=== PATIENT | male | born 1970 | race African-American/Black ===

== ENCOUNTER 2018-08-19 07:59 | Inpatient (IN) ==
--- NOTE | 2018-08-19 08:51 | Diag Imaging Result Doc PS360 ---
EXAM: CT HEAD W/O CONTRAST HISTORY: reynolds, numbness TECHNIQUE: CT head without contrast COMPARISON: None. FINDINGS: No parenchymal hemorrhage. No epidural or subdural hematoma. No subarachnoid hemorrhage. No mass identified on this noncontrasted exam. No hydrocephalus. No sinus opacification. IMPRESSION: No hemorrhage. Negative brain CT without contrast. This exam was performed using automated exposure control, adjustment of mA or kV according to patient size, and/or use of iterative reconstruction technique. Electronically signed by Jet Valenzuela 08/19/2018 8:49 AM
--- NOTE | 2018-08-19 09:38 | PROVIDER DOCUMENTATION ---
HPI-Headache - General Chief Complaint: Headache Stated Complaint: SANDS,RT ARM NUMB,BLURRED VISION Time Seen by Provider: 08/19/18 08:15 Source: patient Allergies/Adverse Reactions: Patient Allergies Allergy/AdvReac Type Severity Reaction Status Date / Time shellfish derived Allergy ANAPHYLAXIS Verified 08/19/18 09:57 - History of Present Illness-Headache Nature of Presenting Problem: Patient is a 48yo M who presents w/ c/o moderate-severe headache, R eye blurry vision, and R arm numbness that began at 0400 this morning. Patient reports he does not have a hx of headaches. Reports he took some OTC Aleve and went to work and was sent to the ER for his symptoms. Hx of HTN. Denies any neck pain. Reports that since being in the ED, this headache has improved and his arm is not numb anymore. Strength equal bilaterally. PERRLA. A&Ox3. Headache Location: reports: global Quality of Pain: reports: throbbing Severity: reports: moderate Onset/Duration: reports: 4-6 hours ago Timing: reports: improving Headache Context: reports: nothing Headache History: reports: other (No hx of headaches) Any recent trauma/injury?: reports: none Headache severity at the maximum: severe Preceding Symptoms: reports: visual disturbances (R eye blurry vision) Headache Exacerbated by:: reports: nothing Modifying Factors: improves with: analgesics (OTC Aleve) Associated Symptoms: reports: headache, vision changes. denies: dizziness, chest pain, neck/back pain, fever/chills, loss of consciousness, muscle spasms, nausea, numbness in legs/feet, paresthesia, diaphoretic, tingling in legs/feet, trouble walking, vomiting, weakness Similar Symptoms Previously?: No Recently seen or treated by another doctor?: No Review of Systems - Adult - REVIEW OF SYSTEMS - ADULT Constitutional: denies: chills, fever Eyes: reports: blurred vision (R eye) Ears, Nose, Mouth & Throat: reports: no symptoms reported Cardiovascular: denies: chest pain, palpitations, syncope Respiratory: denies: cough, shortness of breath Gastrointestinal: denies: nausea, vomiting Genitourinary: reports: no symptoms reported Musculoskeletal: reports: no symptoms reported, other Integumentary: reports: no symptoms reported Neurological: reports: see HPI, headache/migraines, numbness (R eye). denies: dizziness/vertigo, loss of balance, slurred speech, syncope, tremors Psychiatric: reports: no symptoms reported Endocrine: reports: no symptoms reported All Other Systems: Reviewed and Negative Past History - Adult - PAST MEDICAL HISTORY-ADULT Review of Records: reports: Nursing Assessment Review, Medications Reviewed - IMMUNIZATION STATUS Childhood Immunizations: See Nurse Assessment Flu Vaccine: See Nurse Assessment Physical Exam- Neurological - Physical Exam-Neuro Initial Vital Signs Reviewed: Yes General Appearance: appears well, alert, no apparent distress Eye Exam: bilateral eye: normal inspection, PERRL HENMT: normocephalic/atraumatic, moist mucous membranes Head Injury: no evidence of injury Neck: non-tender, full range of motion, supple, normal inspection Respiratory: chest non-tender, lungs clear, normal breath sounds, no pleuratic chest pain, no respiratory distress, no accessory muscle use Cardiovascular: regular rate, rhythm, no gallop, no murmur Lymphatic: no adenopathy Peripheral Pulses: radial (R): 2+, radial (L): 2+ Extremity: normal range of motion, 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, 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: normal hearing, normal speech, PERRL Coordination/Gait: normal finger to nose Motor/Sensory: no motor deficit, no sensory deficit, no pronator drift Neurologic: grossly normal Integumentary: normal color, normal turgor, warm/dry Psych/Mental Status: normal mood/affect, normal thought content, normal thought process, oriented x 3 - Glascow Coma Scale Best Eye Response: (4) open spontaneously Best Verbal Response: (5) oriented Best Motor Response: (6) obeys commands Total Glascow Score: 15 Progress - PLAN OF CARE/RESULTS Progress/Plan/Lab Results: Vital Signs - 8 hr 08/19/18 08:02 Temperature 98.2 F Pulse Rate 82 Respiratory Rate 16 Blood Pressure 169/107 O2 Sat by Pulse Oximetry 99 Laboratory Results - last 24 hr 08/19/18 08/19/18 08/19/18 10:06 10:06 10:22 WBC 4.51 L RBC 4.97 Hgb 14.9 Hct 44.5 MCV 89.5 MCH 30.0 MCHC 33.5 RDW Std Deviation 13.2 Plt Count 201 MPV 11.3 H Immature Gran % (Auto) 0.0 Neut % (Auto) 52.1 Lymph % (Auto) 33.9 Boyle % (Auto) 10.0 H Eos % (Auto) 3.8 Baso % (Auto) 0.2 Immature Gran # (Auto) 0.00 Neut # (Auto) 2.35 Lymph # (Auto) 1.53 Boyle # (Auto) 0.45 Eos # (Auto) 0.17 Baso # (Auto) 0.01 Sodium 139 Potassium 4.0 Chloride 101 Carbon Dioxide 30 Anion Gap 8 BUN 13 Creatinine 1.2 Estimated GFR/1.73 m2 > 60 BUN/Creatinine Ratio 11 Glucose 99 Calculated Osmolality 278 Calcium 9.6 Total Bilirubin 0.52 AST 25 ALT 27 Alkaline Phosphatase 83 Total Protein 7.0 Albumin 4.2 Globulin 2.8 Albumin/Globulin Ratio 1.5 Urine Source CLEAN CATCH Urine Color YELLOW Urine Turbidity CLEAR Urine pH 7.0 Ur Specific [place] 1.007 Urine Protein NEGATIVE Ur Glucose (Stick) NEGATIVE Ur Ketones (Stick) NEGATIVE Urine Blood NEGATIVE Urine Nitrite NEGATIVE Urine Bilirubin NEGATIVE Urobilinogen Dipstick NORMAL Urine Leukocytes NEGATIVE Urine WBC (Auto) <10 Urine RBC (Auto) <10 U Epithel Cells (Auto) <10 Urine Bacteria (Auto) NEGATIVE Orders Category Date Time Status CT HEAD W/O CONTRAST [CT] Stat Exams 08/19/18 08:15 Completed CBC WITH ELECTRONIC DIFF [HEME] Stat Lab 08/19/18 10:06 Completed COMPREHENSIVE METABOLIC PANEL [CHEM] Stat Lab 08/19/18 10:06 Completed URINALYSIS W/POSS RFLX CULT [URINALYSIS] Stat Lab 08/19/18 10:22 Completed EKG [EKG] Stat Ther 08/19/18 09:32 Draft Imaging results and plan of care discussed with patient who verbalizes understanding. Plan of care discussed and formulated in conjunction with MD Parish. Result Diagrams: 08/19/18 10:06 08/19/18 10:06 - CONSULTS/PCP/HOSPITALIST Notification #1 *Consult/PCP/Hospitalist*: NIELS Jones Hospitalist Time Discussed: 11:05 Reason/Comments: Admit for TIA workup - Dr. Lobato Consult Disposition: Admit Departure - Departure Date of Disposition Decision: 08/19/18 Time of Disposition Decision: 11:05 DIAGNOSIS: Right arm numbness, Blurry vision, right eye Headache Qualifiers: Headache type: unspecified Headache chronicity pattern: acute headache Intractability: intractable Qualified Code(s): R51 - Headache Disposition: ADMITTED INPATIENT 09 Certified Medical Emergency: Emergent Condition: Stable Referrals and Follow-Ups: None,PCP [Primary Care Provider] - - Critical Care Note This patient required my direct & personal management of CC.: No Attestation - Physician/ PERCY Attestation Patient care was provided by Advanced Practice Provider:: Yes Advanced Practice Provider:: Mary Funez Advanced Practice Provider documentation review:: The Mid-level provider documentation, treatment plan and medical decision making was reviewed by the physician who agrees with all treatment and medical decision making by the MLP. The physician spent face to face time with patient:: No Advanced Practice Provider documentation review:: Supervising physician onsite and consulted in the evaluation and care of this patient. The physician did not have a face to face encounter with the patient.
[2018-08-19 10:23] LABS: BASO# 0.01 X1000 (0.0-0.2); BASO% 0.2 % (0.0-0.8); EOS# 0.17 X1000 (0.0-0.7); EOS% 3.8 % (0.0-10.0); HEMATOCRIT 44.5 % (42.0-52.0); HEMOGLOBIN 14.9 g/dL (14.0-18.0); LYMPH# 1.53 X1000 (1.2-3.4); LYMPH% 33.9 % (20.5-51.1); MCHC 33.5 g/dL (33-37); MCV 89.5 FL (81-99); MONO# 0.45 X1000 (0.11-0.59); MPV 11.3 FL (7.4-10.4); NEUT# 2.35 X1000 (1.4-6.5); NEUT% 52.1 % (42.2-75.2); PLT 201 X1000 (130-400); RBC 4.97 XMIL (4.7-6.1); RDW 13.2 % (11.5-14.5); WBC 4.51 X1000 (4.8-10.8)
--- NOTE | 2018-08-19 10:23 | EKG Report ---
Test Performed on : 08/19/2018 10:17:54 AM Test Reason : HTN Blood Pressure : / mmHG Vent. Rate : 063 BPM Atrial Rate : 063 BPM P-R Int : 136 ms QRS Dur : 070 ms QT Int : 356 ms P-R-T Axes : 060 031 047 degrees QTc Int : 364 ms Normal sinus rhythm. Nonspecific T wave abnormality Abnormal ECG No previous ECGs available Unconfirmed Result
[2018-08-19 10:33] LABS: AGAP 8; ALB/GLOB RATIO 1.5; ALBUMIN 4.2 g/dL (3.5-5.0); ALKALINE PHOSPHATASE 83 U/L (32-122); BUN 13 mg/dL (8-22); CALCIUM 9.6 mg/dL (8.8-10.2); CHLORIDE 101 mmol/L (98-107); COSMO 278; CREATININE 1.2 mg/dL (0.7-1.2); ESTIMATED GFR > 60; GLUCOSE 99 mg/dL (70-104); GOT 25 U/L (10-34); GPT 27 U/L (10-44); SODIUM 139 mmol/L (136-145); TCO2 30 mmol/L (25-35); TOTAL BILIRUBIN 0.52 mg/dL (0.20-1.00)
[2018-08-19 10:33] LABS: URINE SOURCE CLEAN CATCH
[2018-08-19 10:36] LABS: BILIRUBIN URINE NEGATIVE (NEGATIVE); BLOOD URINE NEGATIVE (NEGATIVE); COLOR YELLOW; GLUCOSE URINE NEGATIVE (NEGATIVE); KETONE URINE NEGATIVE (NEGATIVE); LEUKOCYTES URINE NEGATIVE (NEGATIVE); NITRITE URINE NEGATIVE (NEGATIVE); PROTEIN URINE NEGATIVE (NEGATIVE); SP GRAVITY URINE 1.007; TURBIDITY URINE CLEAR (CLEAR); UROBILINOGEN URINE NORMAL (NORMAL)
[2018-08-19 10:37] LABS: UR EPITHELIAL CELLS <10 /HPF (<10); URINE BACTERIA NEGATIVE /HPF; URINE RBC <10 /HPF (<10); URINE WBC <10 /HPF (<10)
--- NOTE | 2018-08-19 11:17 | ED EKG INTERP ---
EKG Interpretation - EKG Time of EKG reading by physician:: 10:17 EKG Read and Signed by:: Maurice Parish EKG Interpretation (*Must complete 3 of following elements*): Abnormal Rate: 63 Rhythm: NSR [place]: normal QRS: normal NC Interval: normal ST Wave: non-specific ST changes Prior EKG Comparison: no prior EKG Attestation - Physician/ PERCY Attestation Patient care was provided by Advanced Practice Provider:: Yes Advanced Practice Provider:: Mary Funez Advanced Practice Provider documentation review:: The Mid-level provider documentation, treatment plan and medical decision making was reviewed by the physician who agrees with all treatment and medical decision making by the MLP. The physician spent face to face time with patient:: No Advanced Practice Provider documentation review:: Supervising physician onsite and consulted in the evaluation and care of this patient. The physician did not have a face to face encounter with the patient.
[2018-08-19] MEDS ORDERED: TYLENOL PO PRN (11:56)
[2018-08-19] MEDS ORDERED: ZOFRAN IV PRN (11:56)
[2018-08-19 12:17] LABS: INR 0.96; PROTIME 13.6 Seconds (11.0-16.0)
[2018-08-19 12:38] LABS: TSH 1.36 uIUmL (0.27-4.20)
--- NOTE | 2018-08-19 14:05 | HISTORY AND PHYSICAL ---
PRIMARY CARE PROVIDER: [place] [facility] [place]. CHIEF COMPLAINT: Severe headache, blurred vision, and right arm numbness. HISTORY OF PRESENT ILLNESS: Mr. Grey is a 48-year-old male with a past medical history of hypertension, who experienced severe headache along with blurred vision of his right eye and numbness and tingling of his right arm that occurred this morning around 5:15 in the morning. He states he went onto work and took 3 Aleve, and his symptoms still persisted. At that point, he came into the emergency room. His symptoms have now resided. He is not complaining of any of his initial symptoms that brought him into the emergency room anymore. Evaluation in the emergency room showed a head CT that was negative for hemorrhage. EKG with normal sinus rhythm with nonspecific T-wave abnormality. His labs are unremarkable except elevated cholesterol and triglycerides. His vital signs are stable. He will be admitted for further workup and evaluation regarding suspected TIA. PAST MEDICAL HISTORY: 1. Hypertension. 2. Chronic low back pain. PAST SURGICAL HISTORY: Appendectomy. SOCIAL HISTORY: He denies smoking, alcohol or drug use. He lives at home with his fiancee. 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 FAMILY HISTORY: Hypertension in his father. REVIEW OF SYSTEMS: Fourteen point review of systems complete and negative except for those mentioned in the HPI. His current symptoms initially were severe headache, right eye blurred vision and right arm numbness. Those symptoms have since resided. He denies any chest pain, shortness of breath, abdominal pain, nausea, vomiting, constipation, and diarrhea. HOME MEDICATIONS: Waiting to be reconciled. He does take a medication for blood pressure. He states he cannot remember the name of it. ALLERGIES: Shellfish. PHYSICAL EXAMINATION: VITAL SIGNS: Temperature 98.2 degrees, heart rate 82, respiratory rate 16, blood pressure 169/107, and O2 saturation 99% on room air. GENERAL: This is a 48-year-old male in no acute distress sitting up in bed, answering questions appropriately. His fiancee is at the bedside. NEUROLOGIC: He is alert and oriented without focal deficits. His strength was equal bilaterally. There was no facial asymmetry or drooping. Cranial nerves 2-12 were grossly intact. He could complete rapid alternating movement without difficulty and do [id number] without difficulty. HEENT: Head is atraumatic, normocephalic. Pupils are equal, round, reactive to light. Oral mucosa is moist. NECK: Trachea is midline. There is no JVD. CHEST: Lung sounds are clear bilaterally. Respirations are unlabored. CARDIOVASCULAR: Rate and rhythm are regular. S1 and S2 is noted. ABDOMEN: Soft and nontender. Bowel sounds are positive. EXTREMITIES: There is no edema. Capillary refill is brisk. Pedal pulses 2+. SKIN: Warm, dry, and intact. LABORATORY: WBC 4.5, hemoglobin 14.9, hematocrit 44.5, and platelets 201,000. PT 13.6, INR 0.96. Sodium 139, potassium 4.0, BUN 13, creatinine 1.2, and glucose 99. Liver enzymes normal. Triglycerides 189, cholesterol 210. TSH 1.3. B12 397. Urine negative. IMAGING: Head CT with no hemorrhage. Negative brain CT without contrast. EKG, normal sinus rhythm. Nonspecific T-wave abnormality. ASSESSMENT AND PLAN: 1. Suspected transient ischemic attack. We will go ahead and get MRI and MRA of the brain and carotid imaging and echocardiogram. We will do aspirin daily 325. We will start patient on a statin, and do neuro checks q.4 hours. 2. Hypertension. We will continue with his home medications once reconciled. 3. Deep venous thrombosis prophylaxis Lovenox. Dictated by NIELS Kern for Tip Mckeon MD cc: Tip Mckeon MD [place] in [facility]
[2018-08-19] MEDS: LOVENOX SUBQ SCH ×2 (18:28→18:37)
[2018-08-19] MEDS: ASPIRIN PO SCH ×2 (18:28→18:36)
[2018-08-20 07:30] LABS: BASO# 0.02 X1000 (0.0-0.2); BASO% 0.5 % (0.0-0.8); EOS# 0.11 X1000 (0.0-0.7); EOS% 2.9 % (0.0-10.0); HEMATOCRIT 42.8 % (42.0-52.0); HEMOGLOBIN 14.3 g/dL (14.0-18.0); LYMPH% 40.1 % (20.5-51.1); MCHC 33.4 g/dL (33-37); MCV 89.9 FL (81-99); MONO# 0.29 X1000 (0.11-0.59); MONO% 7.8 % (1.7-9.3); MPV 11.2 FL (7.4-10.4); NEUT# 1.82 X1000 (1.4-6.5); NEUT% 48.7 % (42.2-75.2); PLT 199 X1000 (130-400); RBC 4.76 XMIL (4.7-6.1); RDW 13.3 % (11.5-14.5); WBC 3.74 X1000 (4.8-10.8)
[2018-08-20 07:58] LABS: AGAP 12; ALB/GLOB RATIO 1.5; ALKALINE PHOSPHATASE 83 U/L (32-122); BUN 15 mg/dL (8-22); CALCIUM 8.8 mg/dL (8.8-10.2); CHLORIDE 101 mmol/L (98-107); COSMO 278; CREATININE 1.3 mg/dL (0.7-1.2); ESTIMATED GFR > 60; GLUCOSE 97 mg/dL (70-104); GOT 22 U/L (10-34); GPT 24 U/L (10-44); POTASSIUM 4.2 mmol/L (3.5-5.1); SODIUM 139 mmol/L (136-145); TCO2 26 mmol/L (25-35); TOTAL BILIRUBIN 0.42 mg/dL (0.20-1.00); TOTAL PROTEIN 6.6 g/dL (6.3-8.3)
[2018-08-20] MEDS: ASPIRIN PO SCH (08:01)
[2018-08-20] MEDS ORDERED: NORVASC PO SCH (09:00)
--- NOTE | 2018-08-20 09:43 | Diag Imaging Result Doc PS360 ---
MRI BRAIN W/WO CONTRAST - 08/20/2018 INDICATION: stroke COMPARISON: Head CT 08/19/2018 FINDINGS: There is no area of restricted diffusion. No intracranial mass or hemorrhage. There are a few, minimal foci of increased intensity in the subcortical white matter mainly in the left frontal lobe superiorly. No other areas of abnormal signal. There is no abnormal contrast enhancement. IMPRESSION: Minimal nonspecific subcortical white matter changes. No acute process. Electronically signed by Sergio Estrada 08/20/2018 9:40 AM
--- NOTE | 2018-08-20 09:48 | Diag Imaging Result Doc PS360 ---
MRA BRAIN W/O CONTRAST - 08/20/2018 INDICATION: stroke TECHNIQUE: Noncontrast [id number] technique was used COMPARISON: None FINDINGS: The intracranial vessels all appear normal. There is no stenosis or aneurysm. Anatomy is conventional. IMPRESSION: Negative exam. Electronically signed by Sergio Estrada 08/20/2018 9:46 AM
[2018-08-20 11:17] VITALS: BP 148/86
[2018-08-20] MEDS: LOVENOX SUBQ SCH (13:04)
--- NOTE | 2018-08-20 13:51 | ECHO REPORT ---
ORDER DATE: 08/19/2018 INTERPRETING PHYSICIAN: Dr. Paez CLINICAL INDICATIONS: A 48-year-old male with TIA. M-MODE MEASUREMENTS: Left ventricle end diastole: 4.6 cm. Left ventricle end systole: 2.9 cm. Posterior wall: 0.8 cm. Interventricular septum: 0.8 cm. Left atrium: Not measured. Aortic root: 2.6 cm. Inferior vena cava: 1.7 cm. SUMMARY OF 2-DIMENSIONAL IMAGIN. The study is technically difficult. The apical chambers are very limited. 2. The global left ventricular systolic function is normal, ejection fraction estimated at 60% to 65%. No wall motion abnormality is noted. 3. The right ventricle appears to be normal. 4. The aortic valve is normal. Color flow mapping unremarkable. 5. The mitral valve is normal. Color flow mapping indicated a mild degree regurgitation. 6. Pulse wave Doppler of mitral inflow is normal. 7. Tissue Doppler of septal and lateral mitral annulus averages 11 cm. 8. There is no diastolic dysfunction. 9. The pulmonic valve is normal. Color flow mapping unremarkable. 10.The tricuspid valve is normal. Color flow mapping unremarkable. 11.Pulmonary pressure estimated at 31 mmHg. 12.There is no pericardial effusion. No mass. No thrombus. Clinical correlation is recommended. cc: Gamaliel Paez MD
--- NOTE | 2018-08-20 18:35 | Carotid Study ---
DATE: 08/19/2018 PROCEDURE: Carotid duplex imaging. REFERRING PHYSICIAN: Dr. Lobato. INTERPRETING PHYSICIAN: Dr. Randal Galvez. TECH: [employer]. INDICATIONS: TIA, headache, right-sided weakness. OBSERVED DATA RIGHT LEFT Brachial Blood Pressure Carotid Pulse Bruits: Carotid/Sub DIAGRAM OF ULTRASOUND IMAGING R L RIGHT INT EXT INT EXT LEFT Byron (cm/s) Byron (cm/s) Subclavian 112/0 Subclavian 150/0 CCA Proximal 88/14 CCA Proximal 89/9 CCA Distal 60/14 CCA Distal 76/7 Bulb 52/8 Bulb 54/9 ICA Proximal 53/11 ICA Proximal 55/8 ICA Mid 53/16 ICA Mid 41/8 ICA Distal 54/19 ICA Distal 74/22 ECA 64/0 ECA 71/0 Vertebral 43/12 Vertebral 44/14 ICA/CCA Ratio 0.6 ICA/CCA Ratio 0.8 % Stenosis 0-39 % Stenosis 0-39 FINDINGS: There were no significant plaques in either carotid system. There was antegrade vertebral flow bilaterally. INTERPRETATION: Unremarkable carotid imaging study. cc: Randal Galvez MD
[2018-08-20] MEDS ORDERED: LIPITOR PO SCH (21:00)
--- NOTE | 2018-08-21 15:32 | DISCHARGE SUMMARY ---
ADMISSION DATE: 08/19/2018 DISCHARGE DATE: 08/20/2018 DISCHARGE DIAGNOSES: 1. Suspected transient ischemic attack. 2. Hypertension. 3. Dyslipidemia. 4. Obesity with a body mass index of 31.1. PROCEDURES PERFORMED: 1. Head CT scan dated 08/19/2018. Impression: No hemorrhage, negative brain CT without contrast. Electrocardiogram dated 08/19/2017. Results: Normal sinus rhythm, nonspecific T- wave abnormalities. 2. Echocardiogram dated 08/19/2018 ejection fraction estimated at 60 to 65 percent with no wall motion abnormality. Pulmonary pressure estimated at 31 mmHg. No pericardial effusion, mass or thrombus. 3. Brain MRI and MRA of the head. Impression: Minimal nonspecific subcortical white matter changes. No acute process. 4. MRA of the head, negative exam. 5. Carotid ultrasound dated 08/19/2018, bilateral stenosis around 0 to 39 percent, no issues. HOSPITAL COURSE: A 48-year-old male with a past medical history of hypertension, who presented to the emergency department and admitted on 08/19/2017. As per the patient, he presented with severe headache along with blurry vision of the right eye, numbness and tingling of the right arm the morning of admission around 5:15 in the morning. He took 3 Aleve later that day at work, and the symptoms persisted. At that point, he decided to come to the emergency department, but the symptoms now are resolved. CT scan of the head, MRI and MRA of the head, echocardiogram and carotic ultrasound within normal limits. He basically did not have any symptoms during this hospitalization, but he was found to have elevated triglyceride and cholesterol. He was placed on statins for that. Also, his blood pressure was in the 140s to 150s, and we added amlodipine to his treatment. Also, we started this patient on aspirin. Today, this patient is completely asymptomatic. I do not have any acute abnormality in the multiple lab work and images. He is ambulating by himself, tolerating p.o. with no issues. This is why we decided to discharge this patient with a strict followup by his primary care doctor in 1 week. He will be discharged with aspirin, statin, and blood pressure medication. PHYSICAL EXAMINATION: Vital Signs: Temperature 98.2 degrees, pulse 81, respiratory rate 18, blood pressure 148/86, and oxygen saturation 100% on room air. HEENT: Head normocephalic. No trauma. PERRLA. Neck: Supple. No JVD. No masses. Central trachea. Chest: Clear to auscultation. No wheezing. No rales. Abdomen: Soft, nontender, and nondistended. No hepatosplenomegaly. Extremities: No edema. No clubbing. No cyanosis. Neurological: The patient is alert and oriented x3. No focal deficits. LABORATORY: WBC 3.7, hemoglobin 14.3, hematocrit 42.8, and platelets 199,000. Sodium 139, potassium 4.2, chloride 101, bicarbonate 26, BUN 15, creatinine 1.3, glucose 97, and calcium 8.8. Troponin's negative x2. Triglyceride 189. Cholesterol 210. DISCHARGE MEDICATIONS: 1. Amlodipine 5 mg p.o. b.i.d. 2. Aspirin 81 mg p.o. daily. 3. Hydrochlorothiazide 25 mg p.o. daily. 4. Lipitor 20 mg p.o. at bedtime. FOLLOW-UP: Primary care doctor in 1 week. I have recommended a diet exercise and take his medications as prescribed. Also, take notes of his blood pressure multiple times a day so the primary care doctor can see the results and make adjustments. TIME SPENT: Time discharging this patient 32 minutes. cc: Tip Mckeon MD
== END 2018-08-20 18:28 | disposition home or self-care (01) | DRG 69 ==
LOC: ED 07:59 → EDIPHOLD 11:54 → 3N 15:12
PROVIDERS: ATTEND Internal Medicine
CPT/HCPCS: 70450; 70544; 70553; 80053; 80061; 81001; 82607; 83721; 84443; 84484; 85025; 85610; 85730; 92610; 93005; 93306; 93880; 94761; 97161; 99285; A9270; A9579; C8929; J1650; Q9957